=== PATIENT | male | born 1970 | race Caucasian/White ===

== ENCOUNTER 2021-01-31 10:05 | Outpatient (CLI) | payer SELFPAY ==
--- NOTE | 2021-01-31 10:14 | CT_ITS ---
WS: [id number] CT CHEST TECHNIQUE: Noncontrast CT of the chest with coronal and sagittal reformatted images. CLINICAL INFORMATION: MULTIPLE FRACTURES OF RIBS, RIGHT SIDE, SEQUELA COMPARISON: None. DLP: 1132.[address] scans at [facility] use at least one of these dose optimization techniques: automat ed exposure control; mA and/or kV adjustment per patient size (includes targeted exams where dose is matched to clinical indication); or iterative reconstruction. FINDINGS: Multiple healed right-sided rib fractures with callus formation. No displaced rib fractures. No pneum othorax. No visualized left-sided rib fractures. Lungs are well aerated. No acute pulmonary infiltrates. No focal pneumonia or pleural fluid. No mediastinal or hilar lymphadenopathy. No axillary lymphadenopathy. Adrenal glands are normal. Fatt y atrophy of the pancreas. CT/CT chest wo con 75037 IMPRESSION: 1. Multiple healed right-sided rib fractures with callus formation. No displac ed rib fractures. No pneumothorax. 2. Lungs are well aerated. No acute pulmonary infiltrates. 3. No other significant findings.
== END 2021-01-31 10:06 | disposition home or self-care (01) ==
LOC: RADWPI 10:07
PROVIDERS: PCP Nurse Practitioner Family; Visit Provider Nurse Practitioner Family
DX: X58.XXXS Exposure to other specified factors, sequela; S22.41XS Multiple fractures of ribs, right side, sequela
CPT/HCPCS: 71250

== ENCOUNTER 2021-06-06 09:41 | Outpatient (CLI) | payer MEDICAID, SELFPAY | END 2021-06-06 09:42 | disposition home or self-care (01) | LOC: WOUND 09:42 | PROVIDERS: PCP Nurse Practitioner Family; Visit Provider Nurse Practitioner Family | DX: E11.622 Type 2 diabetes mellitus with other skin ulcer (principal); L97.822 Non-pressure chronic ulcer of other part of left lower leg with fat layer exposed | CPT/HCPCS: 11042 ==

== ENCOUNTER → 2021-06-09 09:27 | Outpatient (BNVA) | payer MEDICAID, SELFPAY | PROVIDERS: PCP Nurse Practitioner Family; Visit Provider Nurse Practitioner Family | DX: Z12.11 Encounter for screening for malignant neoplasm of colon (principal); Z20.822 Contact with and (suspected) exposure to COVID-19 | CPT/HCPCS: 87635 ==

== ENCOUNTER 2021-06-13 09:33 | Outpatient (CLI) | payer MEDICAID, SELFPAY | END 2021-06-13 09:34 | disposition home or self-care (01) | LOC: WOUND 09:34 | PROVIDERS: PCP Nurse Practitioner Family; Visit Provider Nurse Practitioner Family | DX: E11.622 Type 2 diabetes mellitus with other skin ulcer (principal); L97.822 Non-pressure chronic ulcer of other part of left lower leg with fat layer exposed | CPT/HCPCS: 11042 ==

== ENCOUNTER 2021-06-16 07:55 | Day surgery (SDC) | payer MEDICAID, SELFPAY ==
[2021-06-14 09:01] VITALS: BMI 40.1
[2021-06-16 08:09] VITALS: BP 125/77; PULSE 67; RESP 18; TEMP 36.8; O2SAT 96
--- NOTE | 2021-06-16 08:20 | W.PM.OPSFHP ---
Same Day Surgery H&P Indication for Procedure/HPI DATE OF PROCEDURE: June 16, 2021 CHIEF COMPLAINT/INDICATIONFOR SURGICAL PROCEDURE: Screening colonoscopy PREOP DIAGNOSIS: screening colonoscopy PLANNED PROCEDRUE: Operation Date: 06/16/21 09:00 Proposed Procedures p Colonoscopy 48223 z12.11(Not Applicable) - Gordy Rolle MD Medications/Allergies* Home Medications Medication Instructions Recorded Confirmed Type diclofenac sodium 75 mg 75 mg PO BID 03/31/21 06/14/21 History tablet,delayed release gabapentin 300 mg capsule 300 mg PO BID 03/31/21 06/14/21 History levothyroxine 25 mcg capsule 25 mcg PO DAILY 03/31/21 06/14/21 History lisinopril 20 mg tablet 20 mg PO DAILY 03/31/21 06/14/21 History metformin 500 mg tablet,extended 500 mg PO DAILY 03/31/21 06/14/21 History release 24hr wmirxudw-rff-dhcix acid 300 1 tab PO DAILY 03/31/21 06/14/21 History mcg-lycopene 600 mcg-lutein 300 mcg tablet phentermine 37.5 mg capsule 37.5 mg PO DAILY 03/31/21 06/14/21 History hydroxyzine HCl 10 mg tablet 10 mg PO TID PRN 05/26/21 06/14/21 History Allergies/Adverse Reactions Allergy/AdvReac Type Severity Reaction Status Date / Time No Known Allergies Allergy Verified 05/26/21 14:14 Pertinent History/Comorbid Conditions* Social History Smoking and tobacco status: never smoked Pertinent Exam Findings alert, oriented x 3 and regular rate & rhythm Recommendations Surgery/Procedure today Coding Level of Care Code 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
--- NOTE | 2021-06-16 08:21 | ANES.PREANE2 ---
Pre-Anesthetic Assessment Pre-Anesthetic Assessment: Height/Weight: Height 1.78 m Weight 127.006 kg Temp Pulse Resp BP Pulse Ox 98.3 F 67 18 125/77 96 06/16/21 08:09 06/16/21 08:09 06/16/21 08:09 06/16/21 08:09 06/16/21 08:09 Preop Diagnosis: screening colonoscopy Proposed Procedure: Operation Date: 06/16/21 09:00 Proposed Procedures p Colonoscopy 97102 z12.11(Not Applicable) - Gordy Rolle MD Was Beta Denise taken within 24 hours: N/A Was Clonidine taken within 24 hours: N/A Last intake: Intake Last Liquid Date 06/15/21 Last Liquid Time 21:00 Last Solid Date 06/14/21 Last Solid Time 17:00 Social: Social History: No alcohol and No tobacco Exam: Pre-Anes Outpt Exam: alert, oriented x 3, clear to auscultation bilaterally and regular rate & rhythm Airway: Submandibular: WNL Cervical ROM: WNL MP: 2 Dentition: Chipped and Loose Additional comments: Very poor dentition, missing most and several loose CV/HEM: CV/HEM: HTN : : Chronic renal Insufficiency Metabolic: Metabolic: DM, Morbid obesity and Thyroid Musc/skel: Musc/skel: Lower Back Pain Anesthetic Plan: ASA status: 3 Anesthesia: MAC Risk of > 500 ml blood loss (7ml/kg in children): No PFSH Anesthesia PFSH: Social History Smoking and tobacco status: never smoked Data Anesthesia Cardiac Studies: No Data to Display
[2021-06-16] MEDS: sodium chloride 0.9% 1,000 ML 30 ML IV (08:24)
[2021-06-16 08:34] LABS: Glucose Point of Care 102 mg/dL (70-110)
[2021-06-16 09:06] VITALS: BP 124/79; PULSE 70; RESP 14; TEMP 36.3; O2SAT 98
[2021-06-16 09:21] VITALS: BP 126/77; PULSE 63; RESP 16; TEMP 36.4; O2SAT 97
--- NOTE | 2021-06-16 10:04 | ANE.PACU2 ---
Inpatient post-anesthesia follow up: Airway intact: Yes Vital signs: Temperature 97.6 F Pulse Rate 63 Respiratory Rate 16 Blood Pressure 126/77 Pulse Oximetry 97 Oxygen Delivery Me thod Room Air Oxygen Flow Rate Fraction of Inspir ed Oxygen Hydration adequate: Yes Nausea and vomiting: No Mental status: Baseline
--- NOTE | 2021-06-16 14:38 | ANE.PACU2 ---
Inpatient post-anesthesia follow up: Airway intact: Yes Vital signs: Temperature 97.6 F Pulse Rate 63 Respiratory Rate 16 Blood Pressure 126/77 Pulse Oximetry 97 Oxygen Delivery Me thod Room Air Oxygen Flow Rate Fraction of Inspir ed Oxygen Hydration adequate: Yes Nausea and vomiting: No Pain level: 1 Mental status: Baseline
== END 2021-06-16 09:25 | disposition home or self-care (01) ==
PROVIDERS: PCP Nurse Practitioner Family; Visit Provider Surgery
PROC: 0DJD8ZZ Inspection of Lower Intestinal Tract, Via Natural or Artificial Opening Endoscopic (ICD-10-PCS; CPT 45378; principal; 2021-06-16 09:00)
DX: Z12.11 Encounter for screening for malignant neoplasm of colon (principal); K64.8 Other hemorrhoids; I10 Essential (primary) hypertension; E11.9 Type 2 diabetes mellitus without complications; E66.01 Morbid (severe) obesity due to excess calories; Z68.41 Body mass index [BMI] 40.0-44.9, adult
CPT/HCPCS: 36416; 45378; 82962; 96360; J2704; J7030

== ENCOUNTER 2021-06-20 09:29 | Outpatient (CLI) | payer MEDICAID, SELFPAY | END 2021-06-20 09:30 | disposition home or self-care (01) | LOC: WOUND 09:33 | PROVIDERS: PCP Nurse Practitioner Family; Visit Provider Emergency Medicine | DX: E11.622 Type 2 diabetes mellitus with other skin ulcer (principal); L97.822 Non-pressure chronic ulcer of other part of left lower leg with fat layer exposed | CPT/HCPCS: 11042 ==

== ENCOUNTER 2021-07-04 09:28 | Outpatient (CLI) | payer MEDICAID, SELFPAY | END 2021-07-04 09:29 | disposition home or self-care (01) | LOC: WOUND 09:29 | PROVIDERS: PCP Nurse Practitioner Family; Visit Provider Emergency Medicine | DX: E11.622 Type 2 diabetes mellitus with other skin ulcer (principal); L97.822 Non-pressure chronic ulcer of other part of left lower leg with fat layer exposed | CPT/HCPCS: 11042; 99212 ==

== ENCOUNTER 2021-07-06 13:26 | Outpatient (CLI) | payer MEDICAID, SELFPAY ==
--- NOTE | 2021-07-06 13:35 | USCV_ITS ---
Dayron Hilliard Age: 51 Gender: M : 1970 Exam Date: 07/06/2021 13:51 Ordering Phys: Corrine Goldman Technologist: Janessa Deal [place] [facility] [place]: HISTORY: Going to wound clinic and has non healing wound with infection lt lateral lower leg PROCEDURES: The venous duplex Doppler examination of both lower extremities was performed in the standard fashion. 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 An evaluation for venous insufficiency was also completed. FINDINGS: Reflux noted Rt and Lt GSV at mid upper vessel CONCLUSIONS 1. Significant venous reflux of greater than 500 ms was noted at the mid greater saphenous vein segment on the right side. The venous segment was measuring 0.65 cm in diameter at a depth of 2.1 cm. 2. Significant venous reflux of greater than 500 ms were noted at the mid greater saphenous vein segment on the left side. The venous segment was measuring 0.7 cm in diameter at a depth of 2.07 cm. 3. No significant venous reflux were noted in the deep veins or in the small saphenous vein systems. 4. No DVT were noted. No similar previous studies are available for comparison. Dr Adrienne Pascal MD [facility] (Electronically Signed) Final Date: 07 July 2021 09:50 S
== END 2021-07-06 13:27 | disposition home or self-care (01) ==
PROVIDERS: PCP Nurse Practitioner Family; Visit Provider Nurse Practitioner Family
DX: R52 Pain, unspecified (principal); E11.621 Type 2 diabetes mellitus with foot ulcer; I87.2 Venous insufficiency (chronic) (peripheral)
CPT/HCPCS: 93970

== ENCOUNTER 2021-07-07 14:24 | Outpatient (CLI) | payer MEDICAID, SELFPAY ==
--- NOTE | 2021-07-07 14:30 | USCV_ITS ---
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 Dr Adrienne Pascal MD [facility] (Electronically Signed) Final Date: 12 July 2021 10:04 S
== END 2021-07-07 14:25 | disposition home or self-care (01) ==
LOC: RAD 14:27
PROVIDERS: PCP Nurse Practitioner Family; Visit Provider Nurse Practitioner Family
DX: R52 Pain, unspecified (principal); E11.622 Type 2 diabetes mellitus with other skin ulcer
CPT/HCPCS: 93923

== ENCOUNTER 2021-07-12 09:02 | Outpatient (CLI) | payer MEDICAID, SELFPAY | END 2021-07-12 09:03 | disposition home or self-care (01) | LOC: WOUND 09:03 | PROVIDERS: PCP Nurse Practitioner Family; Visit Provider Emergency Medicine | DX: E11.622 Type 2 diabetes mellitus with other skin ulcer (principal); L97.822 Non-pressure chronic ulcer of other part of left lower leg with fat layer exposed | CPT/HCPCS: 11042; 29581 ==

== ENCOUNTER 2021-07-14 14:14 | Outpatient (CLI) | payer MEDICAID, SELFPAY | END 2021-07-14 14:15 | disposition home or self-care (01) | LOC: WOUND 14:15 | PROVIDERS: PCP Nurse Practitioner Family; Visit Provider Emergency Medicine | DX: E11.622 Type 2 diabetes mellitus with other skin ulcer (principal); L97.829 Non-pressure chronic ulcer of other part of left lower leg with unspecified severity | CPT/HCPCS: 99211 ==

== ENCOUNTER 2021-07-21 14:37 | Outpatient (CLI) | payer MEDICAID, SELFPAY | END 2021-07-21 14:38 | disposition home or self-care (01) | LOC: WOUND 14:39 | PROVIDERS: PCP Nurse Practitioner Family; Visit Provider Emergency Medicine | DX: E11.622 Type 2 diabetes mellitus with other skin ulcer (principal); L97.822 Non-pressure chronic ulcer of other part of left lower leg with fat layer exposed | CPT/HCPCS: 11042 ==

== ENCOUNTER 2021-07-28 13:49 | Outpatient (CLI) | payer MEDICAID, SELFPAY | END 2021-07-28 13:50 | disposition home or self-care (01) | LOC: WOUND 13:50 | PROVIDERS: PCP Nurse Practitioner Family; Visit Provider Emergency Medicine | DX: E11.622 Type 2 diabetes mellitus with other skin ulcer (principal); L97.822 Non-pressure chronic ulcer of other part of left lower leg with fat layer exposed | CPT/HCPCS: 11042 ==

== ENCOUNTER 2021-08-04 10:05 | Outpatient (CLI) | payer MEDICAID, SELFPAY | END 2021-08-04 10:06 | disposition home or self-care (01) | LOC: WOUND 10:05 | PROVIDERS: PCP Nurse Practitioner Family; Visit Provider Emergency Medicine | DX: E11.622 Type 2 diabetes mellitus with other skin ulcer (principal); L97.822 Non-pressure chronic ulcer of other part of left lower leg with fat layer exposed | CPT/HCPCS: 11042 ==

== ENCOUNTER 2021-08-11 09:20 | Outpatient (CLI) | payer MEDICAID, SELFPAY | END 2021-08-11 09:21 | disposition home or self-care (01) | LOC: WOUND 09:22 | PROVIDERS: PCP Nurse Practitioner Family; Visit Provider Nurse Practitioner Family | DX: E11.622 Type 2 diabetes mellitus with other skin ulcer (principal); L97.822 Non-pressure chronic ulcer of other part of left lower leg with fat layer exposed | CPT/HCPCS: 11042 ==

== ENCOUNTER 2021-08-18 08:30 | Outpatient (CLI) | payer MEDICAID, SELFPAY | END 2021-08-18 08:31 | disposition home or self-care (01) | LOC: WOUND 08:30 | PROVIDERS: PCP Nurse Practitioner Family; Visit Provider Emergency Medicine | DX: E11.622 Type 2 diabetes mellitus with other skin ulcer (principal); L97.822 Non-pressure chronic ulcer of other part of left lower leg with fat layer exposed | CPT/HCPCS: 11042 ==

== ENCOUNTER 2021-08-25 09:33 | Outpatient (CLI) | payer MEDICAID, SELFPAY | END 2021-08-25 09:34 | disposition home or self-care (01) | LOC: WOUND 09:34 | PROVIDERS: PCP Nurse Practitioner Family; Visit Provider Emergency Medicine | DX: E11.622 Type 2 diabetes mellitus with other skin ulcer (principal); L97.822 Non-pressure chronic ulcer of other part of left lower leg with fat layer exposed | CPT/HCPCS: 11042; 87070; 87077; 87176; 87186; 87205; 99212 ==

== ENCOUNTER 2021-09-08 09:29 | Outpatient (CLI) | payer MEDICAID, SELFPAY | END 2021-09-08 09:30 | disposition home or self-care (01) | LOC: WOUND 09:30 | PROVIDERS: PCP Nurse Practitioner Family; Visit Provider Nurse Practitioner Family | DX: E11.622 Type 2 diabetes mellitus with other skin ulcer (principal); L97.821 Non-pressure chronic ulcer of other part of left lower leg limited to breakdown of skin | CPT/HCPCS: 11042 ==

== ENCOUNTER 2021-09-15 09:44 | Outpatient (CLI) | payer MEDICAID, SELFPAY | END 2021-09-15 09:45 | disposition home or self-care (01) | PROVIDERS: PCP Nurse Practitioner Family; Visit Provider Emergency Medicine | DX: E11.622 Type 2 diabetes mellitus with other skin ulcer (principal); L97.822 Non-pressure chronic ulcer of other part of left lower leg with fat layer exposed; I10 Essential (primary) hypertension | CPT/HCPCS: 11042 ==

== ENCOUNTER 2021-10-03 14:47 | Outpatient (CLI) | payer MEDICAID, SELFPAY | END 2021-10-03 14:48 | disposition home or self-care (01) | LOC: WOUND 14:47 | PROVIDERS: PCP Nurse Practitioner Family; Visit Provider Emergency Medicine | DX: E11.622 Type 2 diabetes mellitus with other skin ulcer (principal); L97.829 Non-pressure chronic ulcer of other part of left lower leg with unspecified severity; I87.2 Venous insufficiency (chronic) (peripheral); I10 Essential (primary) hypertension | CPT/HCPCS: G0463 ==

== ENCOUNTER 2021-10-10 13:28 | Outpatient (CLI) | payer MEDICAID, SELFPAY | END 2021-10-10 13:29 | disposition home or self-care (01) | LOC: WOUND 13:30 | PROVIDERS: PCP Nurse Practitioner Family; Visit Provider Nurse Practitioner Family | DX: Z09 Encounter for follow-up examination after completed treatment for conditions other than malignant neoplasm (principal) | CPT/HCPCS: 99212; A6212 ==